=== PATIENT | female | born 1965 | race Caucasian/White ===

== ENCOUNTER 2023-01-22 17:21 | Emergency (ER) | payer MEDICAID, OTHER ==
[~2023-01-22] VITALS: Ht 162.6 cm; Wt 91.8 kg
[2023-01-22] MEDS ORDERED: predniSONE 20 mg tablet PO ONE (20:45)
[2023-01-22] MEDS ORDERED: ipratropium/albuterol 3ml nebule NEB ONE (20:45)
[2023-01-22 21:03] LABS: BASOPHILS # (AUTO) 0.1 X10'3 (0-0.2); BASOPHILS % (AUTO) 0.4 % (0-1); EOSINOPHILS # (AUTO) 0.2 X10'3 (0-0.9); EOSINOPHILS % (AUTO) 1.7 % (0-6); HEMATOCRIT 37.5 % (35.0-45.0); HEMOGLOBIN 12.1 g/dl (12.0-16.0); MEAN CORPUSCULAR HEMOGLOBIN 25.8 PG (27.0-31.0); MEAN CORPUSCULAR HGB CONC 32.2 g/dL (33.0-36.5); MEAN CORPUSCULAR VOLUME 79.9 FL (78-98); MEAN PLATELET VOLUME 6.4 FL (7.4-10.4); MONOCYTES # (AUTO) 0.8 X10'3 (0-0.9); MONOCYTES % (AUTO) 5.6 % (2-12); NEUTROPHILS # (AUTO) 11.2 X10'3 (1.8-7.7); NEUTROPHILS % (AUTO) 78.3 % (42-75); PLATELET COUNT 318 X10'3 (140-440); RED BLOOD COUNT 4.69 X10'6 (4.20-5.60); RED CELL DISTRIBUTION WIDTH 17.8 % (11.5-14.5); WHITE BLOOD COUNT 14.4 X10'3 (4.5-11.0)
[2023-01-22] MEDS ORDERED: amoxicillin 250mg capsule PO ONE (21:10)
[2023-01-22] MEDS ORDERED: DOXYCYCLINE 100MG CAPSULE PO STA (21:10)
[2023-01-22 22:12] LABS: ALANINE AMINOTRANSFERASE 17 U/L (12-78); ALBUMIN/GLOBULIN RATIO 0.6 (1.1-1.5); ALKALINE PHOSPHATASE 58 IU/L (46-116); ANION GAP 13 (8-16); ASPARTATE AMINO TRANSFERASE 11 U/L (10-37); BILIRUBIN,TOTAL 0.4 MG/DL (0.1-1.0); BLOOD UREA NITROGEN 8 MG/DL (7-18); BUN/CREATININE RATIO 10.3 (10.0-20.0); CALCIUM 8.3 MG/DL (8.5-10.1); CHLORIDE 98 MMOL/L (99-107); CREATININE 0.78 MG/DL (0.40-0.90); GLUCOSE 153 MG/DL (70-104); POTASSIUM 3.5 MMOL/L (3.5-5.1); SODIUM 134 MMOL/L (135-145); TOTAL CARBON DIOXIDE 23.2 MMOL/L (24-32); eGFR 77 ML/MIN
[2023-01-22 23:23] LABS: D-DIMER 0.74 MG/L FEU (0-0.50)
[2023-01-22] MEDS ORDERED: iohexol 350MG/ML 100ml bottle IV ONE (23:30)
[2023-01-23] MEDS ORDERED: AMOX500C2 PO (00:22)
[2023-01-23] MEDS ORDERED: DOXY100C76 PO (00:22)
[2023-01-23] MEDS ORDERED: PRED20TA PO (00:22)
[2023-01-23] MEDS ORDERED: ALBU8HFA PO (00:22)
[2023-01-23] MEDS ORDERED: GUAI120L55 PO (01:04)
[2023-01-23 01:06] VITALS: BP 110/75
== END 2023-01-23 01:08 | disposition home or self-care (01) ==
LOC: VAS 17:22 → ER 01-23 01:08
DX: J18.8 Other pneumonia, unspecified organism (principal); J44.9 Chronic obstructive pulmonary disease, unspecified; F17.200 Nicotine dependence, unspecified, uncomplicated
CPT/HCPCS: 36415; 71045; 71275; 80053; 85025; 85379; 93005; 94640; 99285; J7512; Q9967; 94760

== ENCOUNTER 2023-12-02 10:40 | Emergency (ER) | payer MEDICAID ==
[~2023-12-02] VITALS: Ht 165.1 cm; Wt 93.6 kg
[~2023-12-02 10:40] MED LIST: GUAI120L55 PO
[2023-12-02 10:54] VITALS: TEMP 97.9
[2023-12-02 12:19] LABS: BASOPHILS # (AUTO) 0.1 X10'3 (0-0.2); EOSINOPHILS # (AUTO) 0.2 X10'3 (0-0.9); EOSINOPHILS % (AUTO) 1.7 % (0-6); HEMATOCRIT 41.8 % (35.0-45.0); HEMOGLOBIN 13.8 g/dl (12.0-16.0); LYMPHOCYTES # (AUTO) 2.3 X10'3 (1.1-4.8); LYMPHOCYTES % (AUTO) 25.5 % (21-51); MEAN CORPUSCULAR HEMOGLOBIN 26.2 PG (27.0-31.0); MEAN CORPUSCULAR VOLUME 79.4 FL (78-98); MEAN PLATELET VOLUME 7.1 FL (7.4-10.4); MONOCYTES # (AUTO) 0.4 X10'3 (0-0.9); MONOCYTES % (AUTO) 4.7 % (2-12); NEUTROPHILS # (AUTO) 6.1 X10'3 (1.8-7.7); NEUTROPHILS % (AUTO) 67.1 % (42-75); PLATELET COUNT 254 X10'3 (140-440); RED BLOOD COUNT 5.27 X10'6 (4.20-5.60); RED CELL DISTRIBUTION WIDTH 18.8 % (11.5-14.5)
[2023-12-02 12:47] LABS: ALANINE AMINOTRANSFERASE 10 U/L (12-78); ALBUMIN 3.4 G/DL (3.4-5.0); ALBUMIN/GLOBULIN RATIO 0.8 (1.1-1.5); ALKALINE PHOSPHATASE 61 IU/L (46-116); ANION GAP 13 (8-16); ANISOCYTOSIS 2+; ASPARTATE AMINO TRANSFERASE 14 U/L (10-37); BILIRUBIN,TOTAL 0.7 MG/DL (0.1-1.0); BLOOD UREA NITROGEN 10 MG/DL (7-18); BUN/CREATININE RATIO 13.5 (10.0-20.0); BURR CELLS FEW; CALCIUM 7.1 MG/DL (8.5-10.1); CHLORIDE 103 MMOL/L (99-107); CREATININE 0.74 MG/DL (0.40-0.90); ELLIPTOCYTES FEW; GLUCOSE 112 MG/DL (70-104); MICROCYTOSIS 1+; PLATELET ESTIMATE NORMAL; PRO BRAIN NATRIURETIC PEPTIDE 58 PG/ML (0-125); SODIUM 142 MMOL/L (135-145); THYROID STIMULATING HORMONE 0.01 ulU/ml (0.34-4.50); TOTAL CARBON DIOXIDE 26.2 MMOL/L (24-32); TOTAL PROTEIN 7.7 G/DL (6.4-8.2); eCRCL 76 ML/MIN; eGFR 81 ML/MIN
[2023-12-02 12:51] VITALS: BP 111/73; PULSE 88; RESP 20; O2SAT 96
== END 2023-12-02 13:26 | disposition home or self-care (01) ==
LOC: ER 10:40
DX: R25.1 Tremor, unspecified (principal); E03.9 Hypothyroidism, unspecified; E83.51 Hypocalcemia; J44.9 Chronic obstructive pulmonary disease, unspecified; Z88.0 Allergy status to penicillin; Z79.899 Other long term (current) drug therapy
CPT/HCPCS: 36415; 80053; 83880; 84439; 84443; 84484; 85008; 85025; 93005; 99284